=== PATIENT | male | born 1945 | race Caucasian/White ===

== ENCOUNTER 2017-11-02 07:40 | Day surgery (SDC) | payer OTHER ==
[~2017-11-02 07:40] MED LIST: AMOX1TAB5 PO; INTESTINEX680 MG PO; METFORMIN HCL500 MG; ORALONE5 GM; ZOCOR20 MG
== END 2017-11-02 11:45 | disposition home or self-care (01) ==
LOC: AMB-ENDOS 07:40
DX: D12.3 Benign neoplasm of transverse colon (principal); D12.5 Benign neoplasm of sigmoid colon; K57.30 Diverticulosis of large intestine without perforation or abscess without bleeding; K64.8 Other hemorrhoids